=== PATIENT | male | born 1990 | race Caucasian/White ===

== ENCOUNTER 2018-03-31 19:48 | Emergency (ER) | payer BC ==
[~2018-03-31] VITALS: Ht 177.8 cm; Wt 79.0 kg
[2018-03-31 19:53] VITALS: BP 154/77
[2018-03-31] MEDS ORDERED: DIPH,PERTUSS(ACELL),TET VAC/PF 0.5 ML IM-VACC ONE (20:00)
[2018-03-31] MEDS ORDERED: LIDOCAINE 2%, 20ML SQ ONE (20:00)
[2018-03-31] MEDS ORDERED: LIDOCAINE-MPF 1%, 5ML ONE (20:01)
== END 2018-03-31 20:42 | disposition home or self-care (01) ==
LOC: ED 20:40
DX: S61.215A Laceration without foreign body of left ring finger without damage to nail, initial encounter (principal); W26.8XXA Contact with other sharp object(s), not elsewhere classified, initial encounter; Y93.G3 Activity, cooking and baking; Y92.098 Other place in other non-institutional residence as the place of occurrence of the external cause; Y99.8 Other external cause status
CPT/HCPCS: 12001; 12041; 99284